=== PATIENT | male | born 1990 | race Caucasian/White ===

== ENCOUNTER 2019-05-30 20:56 | Emergency (ER) | payer OTHER, SELFPAY ==
[2019-05-30 20:58] VITALS: BP 135/71; PULSE 85; RESP 15; TEMP 37.2; O2SAT 99; BMI 22.4
--- NOTE | 2019-05-30 21:07 | DI.RAD.S_ITS ---
PROCEDURE: XR FINGER LT MIN 2V INDICATIONS: Crush injury TECHNIQUE: AP hand, 2 views of the fourth finger(s) acquired. COMPARISON: None. FINDINGS: Bones: Acute comminuted fracture involving the fourth distal phalangeal tuft is seen. No significant displacement or angulation is seen at fracture site. No other fracture or dislocation.. No suspicious bony lesions. Soft tissues: No suspicious soft tissue calcifications. IMPRESSION: Acute comminuted fourth distal phalangeal tuft fracture. Dictated by: Andre Colbert M.D. on 05/30/2019 at 21:41 Approved by: Andre Colbert M.D. on 05/30/2019 at 21:43
--- NOTE | 2019-05-30 21:55 | ED.UPPEXIN ---
HPI - Extremity Injury (Upper) General Chief Complaint: Extremity Injury, Upper Stated Complaint: Thinks finger is broken left hand Time Seen by Provider: 05/30/19 21:54 Source: patient Mode of arrival: ambulatory Limitations: no limitations History of Present Illness HPI narrative: Patient is a 28-year-old male who presents with left ring finger injury. He was moving furniture when his finger got slammed between a sofa and the inside of the truck. He is able to but it hurts. No numbness or tingling. MD complaint: injury to: left and finger (Left index finger) Onset (ago): minute(s) Related Data Allergies Allergy/AdvReac Type Severity Reaction Status Date / Time No Known Drug Allergies Allergy Verified 05/30/19 21:06 Review of Systems Review of Systems GENERAL: Denies chills,fever HEENT: Denies throat pain RESPIRATORY: Denies dyspnea, cough, wheezing CARDIOVASCULAR: Denies chest pain, palpitations GASTROINTESTINAL: Denies nausea, vomiting MUSCULOSKELETAL: See HPI SKIN: No rash, no laceration, no pruritus NEUROLOGIC: Denies weakness, dizziness, headache, numbness 8 point review of systems is negative except for those stated above and HPI [facility] Medical History Patient denies significant medical history (Acute) Social History Smoking Status: Current every day smoker Social History Smoking Status: Current every day smoker Exam Initial Vital Signs Initial Vital Signs: Vital Signs Temperature 99.0 F 05/30/19 20:58 Pulse Rate 85 05/30/19 20:58 Respiratory Rate 15 05/30/19 20:58 Blood Pressure 135/71 05/30/19 20:58 Pulse Oximetry 99 05/30/19 20:58 GENERAL: Well-appearing, well-nourished and in no acute distress. CARDIOVASCULAR: peripheral pulses in tact, cap refill <2 sec RESPIRATORY: No respiratory distress, speaks in full sentences without difficulty EXTREMITIES: Normal range of motion, no clubbing or edema. Neurovascularly intact Patient's left index finger superficial laceration. He is able flex and extend at PIP but it is painful. No damage to the nail. NEUROLOGICAL: Cranial nerves II through XII grossly intact. Normal gait and speech. SKIN: Warm, dry, no petechiae, no rashes or lesions. Course Orders Ordered: ED Orders 05/30/19 21:07 XR finger LT min 2V Stat Discontinued Medications Hydrocodone Bitart/Acetaminophen (Vicodin Prepack) 1 bottle MISC SEEINSTR ONE Stop: 05/30/19 22:06 Last Admin: 05/30/19 22:10 Dose: 1 bottle Ibuprofen (Advil) 800 mg PO NOW ONE Stop: 05/30/19 22:00 Last Admin: 05/30/19 22:05 Dose: 800 mg Vital Signs - 8 hr 05/30/19 20:58 05/30/19 22:20 Temperature 99.0 F Pulse Rate 85 76 Respiratory Rate 15 16 Blood Pressure 135/71 123/77 Pulse Oximetry 99 97 MDM - Extremity Injury (Upper) Imaging Data left index figner: Radiologist's impression: PROCEDURE: XR FINGER LT MIN 2V INDICATIONS: Crush injury TECHNIQUE: AP hand, 2 views of the fourth finger(s) acquired. COMPARISON: None. FINDINGS: Bones: Acute comminuted fracture involving the fourth distal phalangeal tuft is seen. No significant displacement or angulation is seen at fracture site. No other fracture or dislocation.. No suspicious bony lesions. Soft tissues: No suspicious soft tissue calcifications. IMPRESSION: Acute comminuted fourth distal phalangeal tuft fracture. Dictated by: Andre Colbert M.D. on 05/30/2019 at 21:41 Discharge Plan Departure Patient Disposition: Home Clinical Impression: Finger fracture, left Qualifiers: Encounter type: initial encounter Finger: ring finger Fracture type: closed Phalanx: distal Fracture alignment: nondisplaced Qualified Code(s): S62.665A - Nondisplaced fracture of distal phalanx of left ring finger, initial encounter for closed fracture Discharge Date/Time: 05/30/19 22:18 Interventions: ED Discharge Assessment Last Done: 05/30/19 22:20 Instructions: Finger Fracture Activity Restrictions/Additional Instructions: *You have been diagnosed with left index finger fracture. *What to do: Keep finger in splint at all times. May wash finger with soap and water. May apply Neosporin to the wound. Elevate, ice *Continue to take medications as directed Ibuprofen 800 mg every 8 hours if needed for pain [place] 1 tablet every 6 hours only if needed for severe pain *Follow up with your primary care provider in 2-3 days, follow up with Orthopedics. Call Saturday to schedule point *Return to ER if you should have increased numbness, tingling, or any new, worsening or concerning symptoms Referrals: [facility] [Provider Group]
[2019-05-30] MEDS: IBUPROFEN 400 MG TABLET 800 MG PO (22:05)
[2019-05-30] MEDS: HYDROCODONE/ACET 5/325 PREPACK 1 BOTTLE MISC (22:10)
[2019-05-30 22:20] VITALS: BP 123/77; PULSE 76; RESP 16; O2SAT 97
== END 2019-05-30 22:18 | disposition home or self-care (01) ==
PROVIDERS: Emergency Provider Emergency Medicine
DX: S62.665A Nondisplaced fracture of distal phalanx of left ring finger, initial encounter for closed fracture (principal); W23.0XXA Caught, crushed, jammed, or pinched between moving objects, initial encounter; Y99.0 Civilian activity done for income or pay
CPT/HCPCS: 29130; 73140; 99283